=== PATIENT | male | born 1970 | race African-American/Black ===

== ENCOUNTER 2016-12-11 13:42 | Emergency (ER) | payer SELFPAY ==
--- NOTE | 2016-12-18 11:01 | ER ---
ADMIT: 12/11/2016 RM/LOC: ER [facility] MR#: [id number] [id number] [place], [place] [address] [place] [facility] [address] [place] [address] Emergency Room Report SEX: M AGE: 46 : 1970 DATE: 12/11/2016 ADDENDUM: This 46-year-old black male coming in with left ear pain. He obviously has otitis media. He had it about a year ago. Also has nasal congestion. I put him on Cipro at this time 500 b.i.d. for 10 days. He can get Afrin nasal spray for 3 days as directed [id number]. We gave him a doctor to follow up with in case he is not better. He may also have an underlying sinus infection as well on top of his ear infection which is why I started him on Cipro. CONDITION ON DISCHARGE: Fair. Rigoberto Kim MD/ gloria JOB #: [id number] CC: Rigoberto Kim MD, Attending Physician Ирина Coffey MD, Family Physician
== END 2016-12-11 14:40 | disposition home or self-care (01) ==
LOC: ER 13:42
DX: H66.92 Otitis media, unspecified, left ear (principal); F17.210 Nicotine dependence, cigarettes, uncomplicated

== ENCOUNTER 2016-12-12 14:01 | Emergency (ER) | payer SELFPAY ==
--- NOTE | 2016-12-16 13:48 | ER ---
ADMIT: 12/12/2016 RM/LOC: ER [facility] MR#: [id number] [place], [place] [id number] [place] [facility] [address] [place] [address] Emergency Room Report SEX: M AGE: 46 : 1970 DATE: 12/12/2016 HISTORY OF PRESENT ILLNESS: Started Cipro yesterday, itching since he started first dose of antibiotic, and he was seen by the way by Dr. Kim on 12/10/2016 for sinusitis and otitis media and given Cipro. He did not realize that he would react to something like this, so he went to the house and got the first dose of antibiotic and broke open an itch all over his body. I do not see a rash, but he is pretty uncomfortable. I did switch the antibiotic to Augmentin for treatment of otitis media after visualizing redness in the ear, so he is also having sinusitis, and he will be treated with Augmentin. CLINICAL IMPRESSION: 1. Otitis media, left ear. 2. Sinusitis. 3. Allergic reaction to Cipro antibiotic. The patient advised to get this Augmentin twice a day, use it for 7 days and follow up with his primary provider, Dr. Coffey, for resolution of infection. MONSERRAT Alice[place] / Mark Avendano MD / jose al JOB #: [id number] CC: Rigoberto Kim MD, Attending Physician Ирина Coffey MD, Family Physician
== END 2016-12-12 15:35 | disposition home or self-care (01) ==
LOC: ER 14:01
DX: H66.92 Otitis media, unspecified, left ear (principal); Z88.1 Allergy status to other antibiotic agents; Z98.890 Other specified postprocedural states